=== PATIENT | male | born 1960 | race African-American/Black ===

== ENCOUNTER → 2017-10-13 09:48 | Outpatient (CLI) | payer BC, SELFPAY ==
--- NOTE | 2017-10-13 09:52 | AAVD_ITS ---
Reason For Study: Abdominal bruit Aorta Measurements Aorta Doppler Measurements Proximal aorta measures1.8 x 1.8cm. in cross- Peak systolic flow velocities within the proximal sectional axis. aorta measure 95.8 cm/sec. Proximal aorta measures1.7cm. in longitudinal Peak systolic flow velocities within the mid axis. aorta measure 105.0 cm/sec. Mid aorta measures1.8 x 1.7cm. in cross-sectionalPeak systolic flow velocities within the distal axis. aorta measure 83.9 cm/sec. Mid aorta measures1.7cm. in longitudinal axis. Distal aorta measures1.6 x 1.7cm. in cross- sectional axis. Distal aorta measures1.6cm. in longitudinal axis. Left Iliac Artery Left iliac artery measures 1.0 cm. in the longitudinal axis. Left iliac artery measures .92 x .99 cm. in the cross-sectional axis. Peak systolic velocity in the left iliac artery measures 111.0 cm/sec. Right Iliac Artery Right iliac artery measures .94 cm. in the longitudinal axis. Right iliac artery measures .87 x .99 cm. in the cross-sectional axis. Peak systolic velocity in the right iliac artery measures 129.0 cm/sec. Procedure Aorta IVC Iliac vasculature or bypass grafts 31599. Exam performed in department. Interpretation Summary Dimensions of the intra-abdominal aorta are normal, without evidence of aneurysmal dilatation. The iliac arteries are also normal in size bilaterally. The intra-abdominal aorta and ilac arteries are patent, demonstrating normal, pulsatile arterial flow and peak systolic velocities. Ordering Physician: Darin Gonzales Referring Physician: Darin Gonzales Performed By: Cristina Hidalgo RVT
== END ==
PROVIDERS: Family Provider Family Medicine; PCP Family Medicine; Visit Provider Family Medicine
DX: R09.89 Other specified symptoms and signs involving the circulatory and respiratory systems (principal)
CPT/HCPCS: 93978

== ENCOUNTER 2021-09-27 11:58 | Emergency (ER) | payer OTHER, SELFPAY ==
[2021-09-27 11:59] VITALS: BP 135/99; PULSE 64; RESP 17; TEMP 36.2; O2SAT 100; BMI 28.4
--- NOTE | 2021-09-27 12:16 | EDS_ITS ---
HPI History of Present Illness Chief Complaint: Hyperglycemia Informant: patient Onset/Context/Timing Onset: Weeks Context: Gradual Onset Timing: Continuous Quality: Cramping Location: Abdomen Worsened by: Nothing Relieved by: Bowel movement Associated Symptoms Associated Symptoms: Polyuria, polydipsia, abdominal cramping Narrative Narrative: Patient presents with hyperglycemia that has been getting progressively worse over the past couple weeks. Patient states he took himself off of his metformin. Patient states his blood sugars have been running in the 200s but today went up over 500. Patient admits to some polydipsia and polyuria. Patient admits to some abdominal pain. Patient describes it as cramping. Patient states it is diffuse. Patient denies any nausea or vomiting. Patient states he feels weak. [facility] Medical History (Updated 09/27/21 @ 14:[address] Kamran Barroso DO) Diabetes Hypertension Ischemic stroke Home Medications aspirin 81 mg PO DAILY@0800 #30 tab.chew 11/03/14 [Rx Last Taken Unknown] atorvastatin 40 mg PO QHS #30 tablet 11/03/14 [Rx Last Taken Unknown] lisinopril 10 mg PO DAILY #30 tablet 11/03/14 [Rx Last Taken Unknown] Allergy/AdvReac Type Severity Reaction Status Date / Time No Known Allergies Allergy Verified 09/27/21 11:58 Surgical History Hx of exploratory laparotomy Social History Smoking Status: Never smoker ROS ROS ED Constitutional Constitutional ED: Denies chills or fever(s) Eyes Eyes: Denies blurry vision or change in vision ENT ENT ED: Denies rhinorrhea or sore throat Cardiovascular Cardiovascular: Denies chest pain or palpitations Respiratory/Chest Respiratory/Chest: Denies cough or dyspnea Gastrointestinal Gastrointestinal: Reports abdominal pain; Denies nausea or vomiting Genitourinary Genitourinary ED: Reports urinary frequency; Denies dysuria or hematuria Musculoskeletal Musculoskeletal: Denies back pain or neck pain Integumentary Denies abscess or rash Neurologic Neurologic: Reports weakness; Denies headache(s) Endocrine Endocrinology: Reports polydipsia and polyuria Allergic/Immunologic Allergic/Immunologic ED: Denies mouth swelling or urticaria EXAM Physical Exam Const Vital Signs: 09/27/21 11:59 09/27/21 12:39 09/27/21 14:00 Temperature 97.2 F L Temperature Source Temporal Pulse Rate 64 76 Respiratory Rate 17 14 Respiratory Effort Normal Respiratory Pattern Normal Blood Pressure 135/99 H 130/67 H Blood Pressure Mean 111 88 Pulse Ox 100 98 Oxygen Delivery Method Room Air Room Air Positive well nourished and well developed General Appearance ED: well developed and NAD HEENT Reports moist mucous membranes Neck supple and no JVD Resp normal respiratory effort and clear to auscultation bilaterally Cardio regular rate and regular rhythm GI normal to inspection, nondistended, normoactive bowel sounds and non-tender Palpation: soft Neuro oriented x3, CN's II-XII intact bilaterally and no sensory deficits noted Sensorium / Orientation: alert Motor Exam: strength 5/5 throughout Psych mental status grossly normal MDM MDM MDM Narrative Medical decision making narrative: Patient was given IV fluids. CBC was within normal limits. Comprehensive metabolic profile showed a BUN of 23 and creatinine of 1.63. These are consistent with prior results. Glucose was elevated at 532. Serum acetone was negative. Urinalysis does not show any evidence of urinary tract infection or hematuria. Patient was given a dose of insulin here. Repeat blood sugar was 361. Patient was feeling better on reevaluation. Patient was instructed to restart his metformin as previously prescribed. Patient was instructed to follow-up with his primary care physician in 3 to 5 days. Patient understood and was agreeable with the plan. All questions were answered. Lab Data Attestation: I reviewed the patient's lab results. Labs: Laboratory Results - last 24 hr 09/27/21 09/27/21 09/27/21 12:40 12:40 12:40 WBC 5.6 RBC 4.68 Hgb 13.3 Hct 39.7 L MCV 84.8 MCH 28.4 MCHC 33.5 RDW Std Deviation 40.9 RDW Coeff of Cosme 13.3 Plt Count 282 MPV 12.3 H Immature Gran % (Auto) 0.700 Neut % (Auto) 63.7 Lymph % (Auto) 22.1 [place] % (Auto) 8.4 Eos % (Auto) 4.6 Baso % (Auto) 0.5 Absolute Neuts (auto) 3.6 Absolute Lymphs (auto) 1.24 Nucleated RBC % 0 Sodium 136 Potassium 5.0 Chloride 100 Carbon Dioxide 30.0 Anion Gap 6 BUN 23 H Creatinine 1.63 H Estim Creat Clear Calc 50.91 Est GFR (MDRD) Af Amer 55 L Est GFR (MDRD) Non-Af 46 L BUN/Creatinine Ratio 14.1 Glucose 532 H* Calcium 9.5 Total Bilirubin 0.90 AST 20 ALT 29 Alkaline Phosphatase 98 Total Protein 7.7 Albumin 3.8 Globulin 3.9 Albumin/Globulin Ratio 1.0 Urine Color Urine Clarity Urine pH Ur Specific [place] Urine Protein Urine Glucose (UA) Urine Ketones Urine Occult Blood Urine Nitrite Urine Bilirubin Urine Urobilinogen Ur Leukocyte Esterase Urine RBC Urine WBC Ur Squamous Epith Cells Urine Bacteria Urine Mucus Acetone Level NEGATIVE 09/27/21 13:00 WBC RBC Hgb Hct MCV MCH MCHC RDW Std Deviation RDW Coeff of [place]me Plt Count MPV Immature Gran % (Auto) Neut % (Auto) Lymph % (Auto) [place] % (Auto) Eos % (Auto) Baso % (Auto) Absolute Neuts (auto) Absolute Lymphs (auto) Nucleated RBC % Sodium Potassium Chloride Carbon Dioxide Anion Gap BUN Creatinine Estim Creat Clear Calc Est GFR (MDRD) Af Amer Est GFR (MDRD) Non-Af BUN/Creatinine Ratio Glucose Calcium Total Bilirubin AST ALT Alkaline Phosphatase Total Protein Albumin Globulin Albumin/Globulin Ratio Urine Color Straw Urine Clarity Clear Urine pH 6.0 Ur Specific [place] 1.010 Urine Protein 15 H Urine Glucose (UA) 1000 H Urine Ketones 5 H Urine Occult Blood Negative Urine Nitrite Negative Urine Bilirubin Negative Urine Urobilinogen Normal Ur Leukocyte Esterase Negative Urine RBC 0 SEEN Urine WBC 0 SEEN Ur Squamous Epith Cells 0 SEEN Urine Bacteria 0 SEEN Urine Mucus 0 SEEN Acetone Level Discharge Plan Triage Chief Complaint: Hyperglycemia ED Provider: Kamran Barroso Dx/Rx/DC Orders Clinical Impression: Hyperglycemia, Type 2 diabetes mellitus Instructions: ED Diabetic Hyperglycemia Prescriptions: No Action atorvastatin 40 MG tablet 40 mg PO QHS Qty: 30 RF: 0 lisinopril 10 MG tablet 10 mg PO DAILY Qty: 30 RF: 0 aspirin 81 MG Tab.Chew 81 mg PO DAILY@0800 Qty: 30 RF: 0 Primary Care Provider: [facility] Referrals[facility] [place] [Primary Care Provider] - 3-5 Days Activity Restrictions/Additional Instructions: Restart your metformin as previously prescribed Disposition Disposition: Home, Self Care
[2021-09-27] MEDS: 0.9% Normal Saline 1,000 ML 1000 ML IV (12:42)
[2021-09-27 12:52] LABS: Absolute Lymphocyte Count 1.24 X10^3/uL (0.83-4.51); Absolute Neutrophil Count 3.6 X10^3/uL (2.0-7.7); Basophil# 0.03 X10^3/uL; Basophil% 0.5 % (0-1); Eosinophil# 0.26 X10^3/uL; Eosinophils% 4.6 % (0-5); Hematocrit 39.7 % (40-54); Hemoglobin 13.3 g/dL (13.0-16.5); Lymphocyte # 1.24 X10^3/ul (0.83-4.51); Lymphocyte % 22.1 % (19-41); Mean Corp Hgb Conc 33.5 g/dL (32-36); Mean Corpuscular Hgb 28.4 pg (27.0-32.0); Mean Corpuscular Volume 84.8 fL (80-94); Mean Platelet Vol. 12.3 fl (6.2-12.0); Monocyte# 0.47 X10^3/uL; Monocyte% 8.4 % (0-10); NRBC Flagged by Analyzer 0 % (0-5); Neutrophil # 3.56 X10^3/uL (2.7-7.7); Neutrophil % 63.7 % (47-70); Platelet Count 282 K/mm3 (150-450); RBC Distribution Width CV 13.3 % (11.6-14.6); RBC Distribution Width SD 40.9 fl (35.1-43.9); Red Blood Count 4.68 M/mm3 (4.6-6.2); White Blood Count 5.6 K/mm3 (4.4-11.0)
[2021-09-27 13:09] LABS: AST(SGOT) 20 U/L (15-37); Alanine Aminotransfer ALT/SGPT 29 U/L (16-61); Albumin, Serum 3.8 g/dL (3.2-5.0); Alkaline Phosphatase 98 U/L (45-117); Anion Gap 6 (5-15); BUN 23 mg/dL (7-18); BUN/Creat Ratio 14.1 RATIO (10-20); Calcium,Total 9.5 mg/dL (8.5-10.1); Chloride 100 mmol/L (98-107); Creatinine, Serum 1.63 mg/dL (0.70-1.30); EST Glomerular Filtration Rate 46 mL/min (>60); Est Glom Filt Rate - Afr Amer 55 mL/min (>60); Estimated Creatinine Clearance 50.91 ml/min; Globulin 3.9 g/dL (2.2-4.2); Glucose 532 mg/dL (74-106); Protein, Total 7.7 g/dL (6.4-8.2); Sodium Level 136 mmol/L (136-145)
[2021-09-27 13:14] LABS: Bacteria 0 SEEN /hpf (None Seen); Mucous, Urine 0 SEEN /hpf (<or=2+); Red Blood Cells-Urine 0 SEEN /hpf (0-5); Squamous Epithelial Cells - UA 0 SEEN /hpf (0-5); White Blood Cells 0 SEEN /hpf (0-5)
[2021-09-27 13:17] LABS: Color, Urine Straw (Yellow); Glucose, Dipstick 1000 mg/dl (Normal); Ketone-Dipstick 5 mg/dl (Negative); Leukocyte Esterase-Dipstick Negative /ul (Negative); Nitrite-Dipstick Negative (Negative); Occult Blood-Urine Negative /ul (Negative); Protein-Dipstick 15 mg/dl (Negative); Urine Bilirubin Dipstick Negative (Negative); Urine Clarity Clear (Clear); Urine Urobilinogen Normal (Normal)
[2021-09-27] MEDS: Insulin Lispro 100 UNIT/ML INSULN.PEN 15 UNIT SC (13:40)
[2021-09-27 14:00] VITALS: BP 130/67; PULSE 76; RESP 14; O2SAT 98
[2021-09-27 14:48] VITALS: BP 126/80; PULSE 78; RESP 16; TEMP 36.9; O2SAT 98
[2021-09-27 14:50] LABS: Bedside Glucose 361 mg/dL (74-106)
== END 2021-09-27 14:58 | disposition home or self-care (01) ==
PROVIDERS: Emergency Provider Emergency Medicine; Visit Provider Emergency Medicine
DX: E11.65 Type 2 diabetes mellitus with hyperglycemia (principal); I10 Essential (primary) hypertension; R35.89 Other polyuria; Z79.84 Long term (current) use of oral hypoglycemic drugs; Z86.73 Personal history of transient ischemic attack (TIA), and cerebral infarction without residual deficits
CPT/HCPCS: 80053; 81001; 82009; 82962; 85025; 96360; 96361; 99283; J7030; A4216